=== PATIENT | male | born 1965 | race Hispanic/Latino ===

== ENCOUNTER 2020-12-18 15:24 | Emergency (ER) | payer OTHER ==
--- NOTE | 2020-12-18 16:10 | ER ---
Nurse's Notes [facility] Name: Nahid Rivera Jr Age: 55 yrs Sex: Male : 1965 Arrival Date: 12/18/2020 Time: 15:28 Bed 18 Private MD: Diagnosis: Cellulitis of right lower limb-right knee Presentation: 12/18 15:42 Chief complaint: Patient states: About a week ago pt was cleaning the yard when noticed vg1 something had bitten above the Right knee but 'thought it was an ant and ignored it'. About two days ago pt stated noticed the bite area getting swollen, hard and turning purple. Coronavirus screen: Vaccine status: Patient reports being unvaccinated. Ebola Screen: Patient negative for fever greater than or equal to 101.5 degrees Fahrenheit, and additional compatible Ebola Virus Disease symptoms. Initial Sepsis Screen: Does the patient meet any 2 criteria? No. Patient's initial sepsis screen is negative. Does the patient have a suspected source of infection? No. Patient's initial sepsis screen is negative. Risk Assessment: Do you want to hurt yourself or someone else? Patient reports no desire to harm self or others. Onset of symptoms was December 11, 2020. 15:42 Method Of Arrival: Ambulatory vg1 15:42 Acuity: LORENA 4 vg1 Triage Assessment: 15:45 Bite description: bite sustained to right knee by an unknown animal, animal vg1 information:. General: Appears in no apparent distress. comfortable, Behavior is calm, cooperative. Pain: Complains of pain in right knee. Historical: - Allergies: 15:45 No Known Allergies; vg1 - Home Meds: 15:45 Zoloft Oral [Active]; vg1 - PMHx: 15:45 Depressive disorder; vg1 - Immunization history:: Adult Immunizations up to date, Client reports having NOT received the Covid vaccine. - Social history:: Smoking status: Patient denies any tobacco usage or history of. Assessment: 16:24 General: Appears in no apparent distress. Behavior is calm, cooperative, appropriate tc5 for age. Pain: Denies pain. Derm: insect bite above rt knee x 1 week, approx size of quarter, states no pain unless he moves. Vital Signs: 15:42 BP 136 / 91; Pulse 65; Resp 16; Temp 97.6; Pulse Ox 100% ; Weight 120.2 kg; Height 5 vg1 ft. 10 in. (177.80 cm); Pain 2/10; 16:26 BP 138 / 88; Pulse 67; Resp 16; Pulse Ox 100% ; Pain 10/10; tc5 15:42 Body Mass Index 38.02 (120.20 kg, 177.80 cm) vg1 ED Course: 15:28 Patient arrived in ED. rg4 15:45 Triage completed. vg1 15:45 Arm band placed on. vg1 15:47 Antoinette Restrepo, RN is Primary Nurse. tc5 15:59 Boo Ovalle PA is PHCP. cp 15:59 Ej Bailey MD is Attending Physician. cp Administered Medications: No medications were administered Outcome: 16:10 Discharge ordered by . cp 16:26 Patient left the ED. tc5 Signatures: Boo Ovalle PA PA cp Garcia, Rubi rg4 Amarilys Torres RN RN vg1 Antoinette Restrepo RN RN tc5
--- NOTE | 2020-12-18 16:10 | EDPHYS ---
Physician Documentation [facility] Name: Nahid Rivera Jr Age: 55 yrs Sex: Male : 1965 Arrival Date: 12/18/2020 Time: 15:28 Bed 18 Private MD: ED Physician Ej Bailey HPI: 12/18 16:05 This 55 yrs old Male presents to ER via Ambulatory with complaints of Insect cp Bite. 16:05 The patient presents with a bite, by an insect. The complaints affect the above patella cp of right knee. Onset: The symptoms/episode began/occurred 1 week(s) ago. Associated signs and symptoms: Pertinent positives: swelling, warmth, erythema, Pertinent negatives fever, numbness. Treatment prior to arrival includes: no previous treatment. Historical: - Allergies: 15:45 No Known Allergies; vg1 - Home Meds: 15:45 Zoloft Oral [Active]; vg1 - PMHx: 15:45 Depressive disorder; vg1 - Immunization history:: Adult Immunizations up to date, Client reports having NOT received the Covid vaccine. - Social history:: Smoking status: Patient denies any tobacco usage or history of. ROS: 16:06 Constitutional: Negative for body aches, chills, fever. cp 16:06 Cardiovascular: Negative for chest pain. 16:06 Respiratory: Negative for cough, shortness of breath, wheezing. 16:06 Abdomen/GI: Negative for abdominal pain, nausea, vomiting, and diarrhea. 16:06 Skin: Positive for erythema, swelling, of the above patella of right knee, insect bite. 16:06 All other systems are negative. Exam: 16:08 Constitutional: The patient appears in no acute distress, alert, awake, comfortable, cp non-toxic, well developed, well nourished. 16:08 Skin: cellulitis, that is mild, well demarcated, on the above the patella of right knee. Vital Signs: 15:42 BP 136 / 91; Pulse 65; Resp 16; Temp 97.6; Pulse Ox 100% ; Weight 120.2 kg; Height 5 vg1 ft. 10 in. (177.80 cm); Pain 2/10; 16:26 BP 138 / 88; Pulse 67; Resp 16; Pulse Ox 100% ; Pain 10/10; tc5 15:42 Body Mass Index 38.02 (120.20 kg, 177.80 cm) vg1 MDM: 16:00 Patient medically screened. cp 16:05 Differential diagnosis: cellulitis, abscess. cp 16:10 Data reviewed: vital signs, nurses notes. cp 16:10 Counseling: I had a detailed discussion with the patient and/or guardian regarding: the cp historical points, exam findings, and any diagnostic results supporting the discharge/admit diagnosis, to return to the emergency department if symptoms worsen or persist or if there are any questions or concerns that arise at home. Administered Medications: No medications were administered Disposition: 16:15 Chart complete. cp Disposition Summary: 12/18/20 16:10 Discharge Ordered Location: Home cp Problem: new cp Symptoms: are unchanged cp Condition: Stable cp Diagnosis - Cellulitis of right lower limb - right knee cp Followup: cp - With: Private Physician - When: 48 Hours - Reason: Worsening of condition Discharge Instructions: - Discharge Summary Sheet cp - Cellulitis, Adult cp Forms: - Medication Reconciliation Form cp - Thank You Letter cp - Antibiotic Education cp - Prescription Opioid Use cp Prescriptions: - Bactrim DS 800-160 mg Oral Tablet - take 1 tablet by ORAL route every 12 hours for 10 days; 20 tablet; Refills: 0, cp Product Selection Permitted Addendum: 12/22/2020 00:03 Co-signature as Attending Physician, Ej Bailey MD I agree with the assessment and r n plan of care. Attestation: The patient's history, exam findings, diagnostics, and a summary of any interventions or procedures was reviewed in detail with Boo LEAL. Signatures: Ej Bailey MD MD rn Page, Corey, PA PA cp Garcia, Victoria, RN RN vg1
[2020-12-18 16:48] VITALS: TEMP 97.6; O2SAT 100
[2020-12-18 16:49] VITALS: BP 138/88
== END 2020-12-18 16:26 | disposition home or self-care (01) ==
LOC: ER 15:24
DX: L03.115 Cellulitis of right lower limb (principal)
CPT/HCPCS: 99281